=== PATIENT | female | born 1985 | race Caucasian/White ===

== ENCOUNTER 2019-12-14 11:16 | Emergency (ER) | payer OTHER ==
[~2019-12-14] VITALS: Ht 165.1 cm; Wt 69.4 kg
[2019-12-14 11:48] VITALS: Ht 165.1 cm; Wt 69.4 kg
[2019-12-14 12:59] LABS: BASOPHIL % 0.4 % (0-2); PLATELET COUNT 238 x10^3mcL (130-400); RED CELL DISTRIBUTION WIDTH 13.1 % (11.5-14.5)
[2019-12-14 19:23] VITALS: BP 112/55
== END 2019-12-14 19:23 | disposition home or self-care (01) ==
LOC: ED 11:16
DX: O09.91 Supervision of high risk pregnancy, unspecified, first trimester (principal); O30.001 Twin pregnancy, unspecified number of placenta and unspecified number of amniotic sacs, first trimester; O20.0 Threatened abortion; Z3A.01 Less than 8 weeks gestation of pregnancy
CPT/HCPCS: Q0162